=== PATIENT | female | born 1945 | race Caucasian/White ===

== ENCOUNTER 2018-06-12 11:07 | Outpatient (CLI) | payer MEDICARE, OTHER ==
--- NOTE | 2018-06-12 13:28 | ULT ---
PELVIC ULTRASOUND: Date: 06/12/18 HISTORY: Perineal pain. COMPARISON: None. TECHNIQUE: Transabdominal imaging of the pelvis is performed. FINDINGS: Neither ovary is appreciated. No mass in the left or right adnexa. No evidence of free fluid. Suboptimal evaluation of the uterus. Grossly, the uterus measures 4.4 x 4.3 x 6.4 cm. There is mild h eterogeneity of the myometrium without discrete mass. Suboptimal evaluation of the endometrium. IMPRESSION: 1. No obvious masses or fluid in the adnexa. 2. Limited evaluation of the uterus. Uterus appears to be grossly unremarkable. Suboptimal evaluatio n of the endometrium. Consider pelvic MRI if clinically warranted. POS: [facility]
== END 2018-06-12 11:08 | disposition home or self-care (01) ==
LOC: SCSULT 11:07
PROVIDERS: ATTEND Family Medicine
DX: R10.2 Pelvic and perineal pain (principal)
CPT/HCPCS: 76856

== ENCOUNTER 2018-07-18 13:27 | Outpatient (CLI) | payer MEDICARE, OTHER | END 2018-07-18 13:28 | disposition home or self-care (01) | LOC: ULT 13:27 | PROVIDERS: ATTEND Family Medicine | DX: R60.1 Generalized edema (principal); I08.1 Rheumatic disorders of both mitral and tricuspid valves | CPT/HCPCS: 93306 ==

== ENCOUNTER 2018-09-19 09:57 | Outpatient (CLI) | payer MEDICARE, OTHER ==
--- NOTE | 2018-09-19 10:29 | ULT ---
US Thyroid STANDARD HISTORY: Hypothyroidism COMPARISON: None. FINDINGS: Real-time imaging of the right and left lobes of the gland were performed. The right lobe m easures 1.1 x 1.6 x 3.8 cm. The left lobe measures 1.1 x 1.4 x 3.9 cm. Small bilateral thyroid nodules are noted. All of these are subcentimeter in size. Most are cystic or complex cystic in appearance. IMPRESSION: Small bilateral thyroid nodules.
== END 2018-09-19 09:58 | disposition home or self-care (01) ==
LOC: SCSULT 09:57
PROVIDERS: ATTEND Family Medicine
DX: E03.9 Hypothyroidism, unspecified (principal); E21.3 Hyperparathyroidism, unspecified; E04.2 Nontoxic multinodular goiter
CPT/HCPCS: 76536

== ENCOUNTER 2019-10-18 10:02 | Outpatient (CLI) | payer MEDICARE, OTHER ==
--- NOTE | 2019-10-18 11:21 | RAD ---
CHEST 2 VIEWS: Date: 10/18/2019 HISTORY: Dyspnea. COMPARISON: None. FINDINGS: Lungs are clear. No pneumothorax or effusion. Cardiac silhouette and mediastinal contours within norm al limits. IMPRESSION: No acute intrathoracic abnormality. POS: HOME
== END 2019-10-18 10:03 | disposition home or self-care (01) ==
LOC: RAD 10:02
PROVIDERS: ATTEND Internal Medicine Critical Care Medicine
DX: R06.00 Dyspnea, unspecified (principal)
CPT/HCPCS: 36415; 71046; 80048

== ENCOUNTER 2019-12-18 10:55 | Day surgery (SDC) | payer MEDICARE, OTHER ==
[2019-12-18] MEDS: EPOETIN ALFA-EPBX (ESRD) 10,000 UNIT/ML VIAL ONE (13:12)
[2019-12-18] MEDS ORDERED: EPOETIN ALFA-EPBX (ESRD) 10,000 UNIT/ML VIAL SC SCH (14:00)
== END 2019-12-18 13:15 | disposition home or self-care (01) ==
LOC: ONC/OP 10:55
PROVIDERS: ATTEND Internal Medicine Nephrology
DX: N18.5 Chronic kidney disease, stage 5 (principal); D63.1 Anemia in chronic kidney disease
CPT/HCPCS: 36415; 80069; 83970; 85025; 96372; Q5105

== ENCOUNTER 2020-05-04 12:55 | Day surgery (SDC) | payer MEDICARE, OTHER ==
[2020-05-04] MEDS: EPOETIN ALFA-EPBX (ESRD) 10,000 UNIT/ML VIAL ONE (13:00)
[2020-05-04] MEDS ORDERED: EPOETIN ALFA-EPBX (ESRD) 10,000 UNIT/ML VIAL SC SCH (13:15)
[2020-05-04 13:53] VITALS: BP 227/93; TEMP 98.2
== END 2020-05-04 15:50 | disposition home or self-care (01) ==
LOC: ONC/OP 12:55
PROVIDERS: ATTEND Internal Medicine Nephrology
DX: N18.5 Chronic kidney disease, stage 5 (principal); D63.1 Anemia in chronic kidney disease
CPT/HCPCS: Q5105

== ENCOUNTER 2020-05-05 12:28 | Day surgery (SDC) | payer MEDICARE, OTHER ==
[2020-05-05] MEDS ORDERED: EPOETIN ALFA-EPBX (ESRD) 40,000 UNIT/ML VIAL ONE (12:40)
[2020-05-05 12:47] VITALS: BP 153/70; TEMP 97.9
[2020-05-05] MEDS ORDERED: EPOETIN ALFA-EPBX (ESRD) 10,000 UNIT/ML VIAL SC SCH (13:00)
[2020-05-05] MEDS: EPOETIN ALFA-EPBX (NON-ESRD) 10,000 UNIT/ML VIAL ONE (14:03)
== END 2020-05-05 14:06 | disposition home or self-care (01) ==
LOC: ONC/OP 12:28
PROVIDERS: ATTEND Internal Medicine Nephrology
DX: N18.5 Chronic kidney disease, stage 5 (principal); D63.1 Anemia in chronic kidney disease
CPT/HCPCS: 96372; Q5105; Q5106

== ENCOUNTER 2020-06-03 11:10 | Day surgery (SDC) | payer MEDICARE, OTHER ==
[2020-06-03] MEDS: EPOETIN ALFA-EPBX (ESRD) 10,000 UNIT/ML VIAL ONE ×2 (11:31→11:32)
[2020-06-03 11:34] VITALS: BP 185/79
== END 2020-06-03 11:36 | disposition home or self-care (01) ==
LOC: ONC/OP 11:10
PROVIDERS: ATTEND Internal Medicine Nephrology
DX: N18.5 Chronic kidney disease, stage 5 (principal); D63.1 Anemia in chronic kidney disease
CPT/HCPCS: 96372; Q5105

== ENCOUNTER 2020-07-10 11:29 | Day surgery (SDC) | payer MEDICARE, OTHER ==
[2020-07-10] MEDS ORDERED: EPOETIN ALFA-EPBX (ESRD) 10,000 UNIT/ML VIAL FS SCH (12:00)
== END 2020-07-10 12:34 | disposition home or self-care (01) ==
LOC: ONC/OP 11:29
PROVIDERS: ATTEND Internal Medicine Nephrology
DX: N18.5 Chronic kidney disease, stage 5 (principal); D63.1 Anemia in chronic kidney disease
CPT/HCPCS: 96372; Q5105